=== PATIENT | female | born 1955 | race Caucasian/White ===

== ENCOUNTER → 2016-05-07 | Outpatient (CLI) | payer OTHER ==
[~2016-05-07] MED LIST: AMLODIPINE-BENA1 CA3 PO; ASPIRIN PO; BACTRIM DS TABL1 TA1 PO; GLUCOPHAGE500 MG PO; LIPITOR PO; LOTREL 5/20 MG1 CAP PO; METFORMIN PO; MICRONASE1.25 MG PO; PYRIDIUM100 MG PO; VICODIN 5/500 T1 TAB PO
--- NOTE | ~2016-05-07 | MY11 ---
[facility] A Service of [facility] RADIOLOGY TEXT RESULTS PATIENT: ÁLVARO AJ LOCATION: [facility] : 53 UNIT #: [id number] AGE: [address]: Baltazar Dunbar MD SEX: F ORDER DR: [id number] [facility] [address] [place], [place] [address] [id number] MR#: [id number] #: [id number] NAME: ÁLVARO AJ. : 1955 SEX: F STUDY DATE/TIME: 05/07/2016 15:22 UNIT: [facility] ROOM: STUDY DESCRIPTION: MY Mammogram Screening Dig Richie Attending Physician: Baltazar Dunbar M.D. Ordering Physician: Baltazar Dunbar M.D. Primary Care Physician: Baltazar Dunbar M.D. MEDICAL IMAGING REPORT This report is preliminary unless electronic signature is present EXAM Digital screening mammogram 05/07/2016 HISTORY 60-year-old woman annual screen. No risk elevation. COMPARISON Mammograms date to 05/23/2005 with most recent 03/01/2015. FINDINGS Digital imaging of each breast was completed utilizing screening protocol. Review includes FDA-approved CAD device. Breast parenchyma remains heterogeneously dense with subareolar duct prominence bilaterally. Several benign calcifications are noted in each breast. I see no suspicious mass. There are no interval occurring microcalcifications and no suspicious architectural distortion. IMPRESSION Stable benign mammogram. Annual screening recommended. Patients over the age of 40 are entered into a reminder system with target due date for the next mammogram. A result letter will also be sent to the patient. BIRADS: 2, benign findings. Dictated by... Jese Shields M.D. THIS IS AN ELECTRONICALLY VERIFIED REPORT Jese Shields M.D. at 05/08/2016 2:43 PM JBB/rnr [facility] A Service of [facility] RADIOLOGY TEXT RESULTS PATIENT: ÁLVARO AJ LOCATION: [facility] : 53 UNIT #: [id number] AGE: [address]: Baltazar Dunbar MD SEX: F ORDER DR: TD: 05/08/2016 13:49 JOB #: [id number] MEDICAL IMAGING REPORT Page 1 of 1 COPY
== END | disposition home or self-care (01) ==
LOC: CWCC 14:55
DX: Z12.31 Encounter for screening mammogram for malignant neoplasm of breast (principal); E55.9 Vitamin D deficiency, unspecified
CPT/HCPCS: G0202